=== PATIENT | female | born 1930 | race Caucasian/White ===

== ENCOUNTER → 2020-09-09 | Outpatient (CLI) | payer MEDICARE, OTHER | LOC: HEART 5 14:25 | DX: I08.3 Combined rheumatic disorders of mitral, aortic and tricuspid valves (principal); I25.10 Atherosclerotic heart disease of native coronary artery without angina pectoris; I48.0 Paroxysmal atrial fibrillation | CPT/HCPCS: 93306 ==

== ENCOUNTER 2021-02-24 15:01 | Emergency (ER) | payer MEDICARE, OTHER ==
[2021-02-24 16:50] LABS: HEMOGLOBIN 13.1 gm/dl (12.3-15.3); RED BLOOD COUNT 4.38 M/UL (4.00-5.10); WHITE BLOOD COUNT 15.2 K/UL (4.5-11.0)
== END 2021-02-24 18:10 | disposition home or self-care (01) ==
LOC: ER1 15:01
PROVIDERS: Physician Assistant
DX: M79.604 Pain in right leg (principal); I10 Essential (primary) hypertension; Z90.710 Acquired absence of both cervix and uterus
CPT/HCPCS: 70450; 71045; 72125; 73502; 73552; 80053; 81001; 84484; 85025; 93005; 99284